=== PATIENT | female | born 1985 | race Two or more races ===

== ENCOUNTER 2025-01-20 10:18 | Emergency (ER) | payer SELFPAY ==
[~2025-01-20] VITALS: Ht 162.6 cm; Wt 65.0 kg
[2025-01-20 10:24] VITALS: O2SAT 100
[2025-01-20 11:03] LABS: BASOPHILS % 0.2 % (0.0-2.0); EOSINOPHILS % 0.7 % (0.0-5.0); HEMATOCRIT. 41.0 % (36.0-48.0); HEMOGLOBIN. 13.7 g/dL (12.0-16.0); LYMPHOCYTES % 8.4 % (20.0-50.0); MEAN PLATELET VOLUME 9.8 fl (7.4-10.4); MONOCYTES % 2.5 % (2.0-8.0); NEUTROPHILS % 88.2 % (40.0-76.0); PLATELET 215 x1000/uL (130-400); RED BLOOD CELL COUNT 4.23 mill/uL (4.2-5.4); RED CELL DISTRIBUTION WIDTH 12.0 % (11.6-14.6)
[2025-01-20 11:18] LABS: CREATININE 1.0 mg/dL (0.6-1.0); UREA NITROGEN BLOOD 13 mg/dL (9-23)
[2025-01-20 11:20] LABS: ASPARTATE AMINOTRANSFERASE 23 IU/L (<34); BILIRUBIN TOTAL 0.6 mg/dL (0.1-1.0); PROTEIN TOTAL 7.1 g/dL (6.0-8.3)
[2025-01-20] MEDS: KETOROLAC 30MG/ML VIAL IM ONE (11:39)
[2025-01-20 11:56] LABS: CLARITY URINE CLEAR (CLEAR); COLOR URINE YELLOW (YELLOW); GLUCOSE URINE NEGATIVE (NEGATIVE); KETONES URINE NEGATIVE (NEGATIVE); LEUKOCYTE ESTERASE URINE NEGATIVE (NEGATIVE); NITRITE URINE NEGATIVE (NEGATIVE); OCCULT BLOOD URINE NEGATIVE (NEGATIVE); PH URINE 7.0 (4.5-8.0); PROTEIN URINE NEGATIVE (NEGATIVE); SPECIFIC GRAVITY URINE 1.010 (1.005-1.030); UROBILINOGEN URINE 0.2 E.U./dL (0.2-1.0)
[2025-01-20 12:43] LABS: HCG SCREEN NEGATIVE
[2025-01-20] MEDS ORDERED: IBUP-2029 MT (12:45)
[2025-01-20] MEDS ORDERED: GUAI120017 MT (12:45)
[2025-01-20 13:01] VITALS: BP 124/75; PULSE 69; RESP 16; TEMP 36.7; O2SAT 97
== END 2025-01-20 13:02 | disposition home or self-care (01) ==
LOC: ER 10:18
DX: B34.9 Viral infection, unspecified (principal); Z98.890 Other specified postprocedural states
CPT/HCPCS: 80053; 81003; 84703; 85025; 36415; 71045; 96372; 99284; J1885; Z7610